=== PATIENT | female | born 1995 | race Caucasian/White ===

== ENCOUNTER 2025-07-11 08:59 | Emergency (ER) | payer OTHER ==
[~2025-07-11] VITALS: Ht 154.9 cm; Wt 86.4 kg
[2025-07-11 09:03] VITALS: TEMP 98.2
[2025-07-11 09:26] LABS: GLUCOMETER DEV NAME(LOC) ER.7; GLUCOSE,POINT OF CARE 328 MG/DL (70-110)
[2025-07-11 12:17] LABS: PLATELET COUNT (AUTO) 376 K/uL (150-450); RED BLOOD CELL COUNT(AUTO) 5.28 MIL/uL (4.00-5.20); RED CELL DISTRIBUTION WIDTH 14.7 % (11.5-14.5); WHITE BLOOD COUNT (AUTO) 12.4 K/uL (4.5-11.0)
[2025-07-11 12:29] LABS: CALCIUM, TOTAL 8.9 mg/dL (8.8-10.5); CREATININE 0.63 mg/dL (0.60-1.30); GLOMERULAR FILTR. RATE CALC > 60 mL/min (>60); GLUCOSE,RANDOM 278 mg/dL (70-110); SODIUM SERUM 134 mmol/L (136-145); UREA NITROGEN, BLOOD 7 mg/dL (7-18)
[2025-07-11] MEDS ORDERED: DOXY-354 PO (13:05)
[2025-07-11] MEDS ORDERED: METF-1211 PO (13:05)
[2025-07-11 13:15] VITALS: BP 120/80; PULSE 95; RESP 18; O2SAT 99
[2025-07-11] MEDS ORDERED: IBUP-1492 PO (13:16)
[2025-07-11] MEDS: IBUPROFEN 600 MG TABLET PO ONE (13:29)
== END 2025-07-11 14:13 | disposition home or self-care (01) ==
LOC: EMS 08:59
DX: L73.2 Hidradenitis suppurativa (principal); E11.9 Type 2 diabetes mellitus without complications; G43.909 Migraine, unspecified, not intractable, without status migrainosus; Z79.899 Other long term (current) drug therapy
CPT/HCPCS: 80048; 82962; 85025; 99283